=== PATIENT | female | born 1965 | race Caucasian/White ===

== ENCOUNTER 2017-06-03 15:32 | Emergency (ER) | payer BC ==
[~2017-06-03] VITALS: Ht 162.6 cm; Wt 90.7 kg
[2017-06-03 16:12] VITALS: BP 148/80
== END 2017-06-03 19:06 | disposition home or self-care (01) ==
LOC: ER 15:44
DX: S39.011A Strain of muscle, fascia and tendon of abdomen, initial encounter (principal); E11.9 Type 2 diabetes mellitus without complications; E66.9 Obesity, unspecified; Z68.34 Body mass index [BMI] 34.0-34.9, adult; Z88.6 Allergy status to analgesic agent; Z88.1 Allergy status to other antibiotic agents; X58.XXXA Exposure to other specified factors, initial encounter; Y93.89 Activity, other specified; Y92.89 Other specified places as the place of occurrence of the external cause; Y99.8 Other external cause status
CPT/HCPCS: 73502; 93971